=== PATIENT | female | born 1970 | race Caucasian/White ===

== ENCOUNTER 2017-12-19 15:44 | Emergency (ER) | payer OTHER ==
[2017-12-19 16:41] VITALS: BP 117/65
--- NOTE | 2017-12-19 16:48 | UC ---
Respiratory Complaint HPI - HPI Summary HPI Summary: Pt presents with 10 days of fatigue, sinus pain/pressure/congestion, and dry cough. She thinks the fatigue and sinus symptoms are improving. Has been taking nyquill/dayquill with mild relief of her symptoms. Today she is most concerned with her persisting cough. Denies fever, chills, SOB, chest pain, abdominal pain , n/v/d/c. She is still smoking. - History of Current Complaint Hx Obtained From: Patient Hx Last Menstrual Period: 04/18/16 Severity Initially: Moderate Severity Currently: Moderate Pain Intensity: 5 Pain Scale Used: 0-10 Numeric Character: Cough: Nonproductive <Randall Monae - Last Filed: 12/19/17 17:42> <Brandy Leon - Last Filed: 12/19/17 19:05> - History of Current Complaint Chief Complaint: UCGeneralIllness Stated Complaint: URI Time Seen by Provider: 12/19/17 16:48 - Allergies/Home Medications Allergies/Adverse Reactions: Allergies Allergy/AdvReac Type Severity Reaction Status Date / Time bee pollen Allergy Anaphylatic Verified 12/19/17 16:42 Shock Penicillins Allergy Anaphylatic Verified 12/19/17 16:42 Shock PMH/Surg Hx/FS Hx/Imm Hx Previously Healthy: Yes - Surgical History Surgical History: Yes Surgery Procedure, Year, and Place: Deviated septum. Tubal ligation - Family History Known Family History: Positive: Hypertension - Social History Occupation: Employed Full-time Lives: With Family Alcohol Use: Occasionally Alcohol Amount: 2-3 drinks every two weeks Substance Use Type: None Smoking Status (MU): Current Every Day Smoker Type: Cigarettes Amount Used/How Often: 1 PACK/WEEK Length of Time of Smoking/Using Tobacco: quit 11/05/14 Have You Smoked in the Last Year: Yes <Randall Monae - Last Filed: 12/19/17 17:42> Review of Systems Constitutional: Fatigue Skin: Negative Eyes: Negative ENT: Sinus Congestion Respiratory: Cough Cardiovascular: Negative Gastrointestinal: Negative Musculoskeletal: Negative Neurological: Negative Psychological: Negative All Other Systems Reviewed And Are Negative: Yes <Randall Monae - Last Filed: 12/19/17 17:42> Physical Exam Triage Information Reviewed: Yes Appearance: Well-Appearing, No Pain Distress, Well-Nourished Vital Signs: Initial Vital Signs Temp 98.9 F 12/19/17 16:36 Pulse 77 12/19/17 16:36 Resp 19 12/19/17 16:36 BP 117/65 12/19/17 16:36 Pulse Ox 100 12/19/17 16:36 Vital Signs Reviewed: Yes Eyes: Positive: Conjunctiva Clear. Negative: Conjunctiva Inflamed, Discharge ENT: Positive: Hearing grossly normal, Pharynx normal, Nasal congestion, TMs normal, Uvula midline. Negative: Pharyngeal erythema, Nasal drainage, TM bulging, TM dull, TM red, Tonsillar swelling, Tonsillar exudate, Sinus tenderness Neck: Positive: Supple, Nontender, No Lymphadenopathy Respiratory: Positive: Lungs clear, No respiratory distress, No accessory muscle use, Wheezing - Mild throughout Cardiovascular: Positive: RRR, No Murmur, Pulses Normal Neurological: Positive: Alert Psychological: Positive: Age Appropriate Behavior Skin: Negative: rashes <Randall Monae - Last Filed: 12/19/17 17:42> Vital Signs: Initial Vital Signs Temp 98.9 F 12/19/17 16:36 Pulse 77 12/19/17 16:36 Resp 19 12/19/17 16:36 BP 117/65 12/19/17 16:36 Pulse Ox 100 12/19/17 16:36 <Brandy Leon - Last Filed: 12/19/17 19:05> Diagnostic Evaluation - Laboratory O2 Sat by Pulse Oximetry: 100 <Randall Monae - Last Filed: 12/19/17 17:42> Respiratory Course/Dx - Course Course Of Treatment: CXR: Lung carreon demonstrate no pleural fluid, pneumonia. or pneumothorax. POC flu negative. Suspect bronchitis. Will try tessalon and albuterol inhaler. F/u prn - Differential Dx/Diagnosis Provider Diagnoses: Bronchitis <Randall Monae - Last Filed: 12/19/17 17:42> Discharge <Randall Moane - Last Filed: 12/19/17 17:42> <Brandy Leon - Last Filed: 12/19/17 19:05> - Discharge Plan Condition: Stable Disposition: HOME Prescriptions: Albuterol HFA INHALER* [Ventolin HFA Inhaler*] 1 - 2 puff INH Q6H PRN #1 mdi PRN Reason: Wheezing Benzonatate CAP* [Tessalon 100 MG CAP*] 100 mg PO TID PRN #21 cap PRN Reason: Cough Patient Education Materials: Acute Bronchitis (ED) Referrals: Peggy Hart MD [Primary Care Provider] - Additional Instructions: If you develop a fever, shortness of breath, chest pain, new or worsening symptoms - please call your PCP or go to the ED. Attestation Statement User Type: Provider - I was available for consult. This patient was seen by the advanced practice provider. The patient was not presented to, seen by, or examined by me.-Derian <Brandy Leon - Last Filed: 12/19/17 19:05>
--- NOTE | 2017-12-19 17:34 | RAD ---
Indication: Cough. 2 views the chest including dual energy PA views demonstrate no mediastinal shift. Heart is of normal size and configuration. Lung carreon demonstrate no pleural fluid, pneumonia or pneumothorax. When compared to previous exam of February 07, 2016 no significant change is noted. IMPRESSION: Active cardiopulmonary disease is identified.
== END 2017-12-19 17:52 | disposition home or self-care (01) ==
LOC: UCEAST 15:44
DX: J40 Bronchitis, not specified as acute or chronic (principal); Z88.0 Allergy status to penicillin; Z91.030 Bee allergy status; Z87.891 Personal history of nicotine dependence
CPT/HCPCS: 71046; 87502; 99212; G0463

== ENCOUNTER 2019-01-24 11:43 | Emergency (ER) | payer OTHER ==
[2019-01-24 11:53] VITALS: BP 117/62
--- NOTE | 2019-01-24 12:03 | ED ---
Upper Extremity Pain - HPI Summary HPI Summary: 48-year-old female presents with right shoulder injury last week. States he fell on her right shoulder while walking the dog. She states the pain radiates into her right side of her neck. No numbness or tingling. She states she is not able to lift her arm up above shoulder height or behind her back. denies any previous injury to the area. She is right-handed. She works as an administrative accountant. - History of Current Complaint Chief Complaint: UCUpperExtremity Stated Complaint: RT SHOULDER/NECK Time Seen by Provider: 01/24/19 11:56 Hx Last Menstrual Period: 04/18/16 - Allergies/Home Medications Allergies/Adverse Reactions: Allergies Allergy/AdvReac Type Severity Reaction Status Date / Time bee pollen Allergy Anaphylatic Verified 01/24/19 11:53 Shock Penicillins Allergy Anaphylatic Verified 01/24/19 11:53 Shock Home Medications: Home Medications NK [No Home Medications Reported] 01/24/19 [History Confirmed 01/24/19] PMH/Surg Hx/FS Hx/Imm Hx Endocrine/Hematology History: Denies: Hx Diabetes, Hx Thyroid Disease Cardiovascular History: Denies: Hx Hypertension Respiratory History: Denies: Hx Asthma, Hx Chronic Obstructive Pulmonary Disease (COPD) GI History: Denies: Hx Ulcer - Surgical History Surgery Procedure, Year, and Place: Deviated septum. Tubal ligation Infectious Disease History: No Infectious Disease History: Denies: Hx Clostridium Difficile, Hx Hepatitis, Hx Human Immunodeficiency Virus (HIV), Hx of Known/Suspected MRSA, Hx Shingles, Hx Tuberculosis, Hx Known/ Suspected VRE, Hx Known/Suspected VRSA, History Other Infectious Disease, Traveled Outside the [place] in Last 30 Days - Family History Known Family History: Positive: Hypertension - Social History Alcohol Use: Occasionally Alcohol Amount: 2-3 drinks every two weeks Substance Use Type: Reports: None Hx Tobacco Use: Yes Smoking Status (MU): Former Smoker Type: Cigarettes Amount Used/How Often: 1 PACK/WEEK Length of Time of Smoking/Using Tobacco: quit 11/05/14 Have You Smoked in the Last Year: Yes Review of Systems Negative: Fever Negative: Chest Pain Negative: Shortness Of Breath Positive: Myalgia - right shoulder pain All Other Systems Reviewed And Are Negative: Yes Physical Exam Triage Information Reviewed: Yes Vital Signs On Initial Exam: Initial Vitals Temp Pulse Resp BP Pulse Ox 97 F 87 20 117/62 100 01/24/19 11:50 01/24/19 11:50 01/24/19 11:50 01/24/19 11:50 01/24/19 11:50 Vital Signs Reviewed: Yes Appearance: Positive: Well-Appearing Skin: Positive: Warm, Dry Head/Face: Positive: Normal Head/Face Inspection Eyes: Positive: Normal, Conjunctiva Clear ENT: Positive: Pharynx normal Respiratory/Lung Sounds: Positive: Clear to Auscultation, Breath Sounds Present Cardiovascular: Positive: Normal, RRR Musculoskeletal: Positive: Limited @ - right shoulder, Other - tenderness right shoulder, good pulses, unable to lift arm above right shoulder, limited ROM behind right shoulder, tenderness side of neck, no midline tenderness. good ampoule filler and sealer strength Neurological: Positive: Normal Psychiatric: Positive: Normal Diagnostics - Vital Signs Vital Signs Temp Pulse Resp BP Pulse Ox 01/24/19 11:50 97 F 87 20 117/62 100 - Laboratory Lab Statement: Any lab studies that have been ordered have been reviewed, and results considered in the medical decision making process. - Radiology shoulder Radiology Interpretation Completed By: Radiologist Summary of Radiographic Findings: IMPRESSION: #. No radiographic evidence for RIGHT shoulder injury or adjacent rib fracture. Course/Dx - Course Course Of Treatment: 48-year-old female presents with right shoulder injury last week. States he fell on her right shoulder while walking the dog. She states the pain radiates into her right side of her neck. No numbness or tingling. She states she is not able to lift her arm up above shoulder height or behind her back. denies any previous injury to the area. She is right- handed. She works as an administrative accountant. On exam tenderness over shoulder right. Limited range of motion. Neurovascularly intact. xray shows no fracture. gave sling. told follow up with ortho. will place on muscle relaxer. patient understand and agrees with plan. - Diagnoses Differential Diagnosis/HQI/PQRI: Positive: Fracture (Closed), Strain, Sprain Provider Diagnoses: Right shoulder pain Discharge - Sign-Out/Discharge Documenting (check all that apply): Patient Departure All imaging exams completed and their final reports reviewed: Yes - Discharge Plan Condition: Good Disposition: HOME Patient Education Materials: Shoulder Pain (ED) Referrals: Peggy Hart MD [Primary Care Provider] - Elidia Young MD [Medical Doctor] - Additional Instructions: Take Tylenol and ibuprofen every 6 hours as needed for pain take flexeril three times a day for pain Ice/heat perform range of motion activities for shoulder as tolerated Follow up with ortho Return to ED if develop any new or worsening symptoms - Billing Disposition and Condition Condition: GOOD Disposition: Home
== END 2019-01-24 12:50 | disposition home or self-care (01) ==
LOC: UCEAST 11:43
DX: M25.511 Pain in right shoulder (principal); Z87.891 Personal history of nicotine dependence; Z91.030 Bee allergy status; Z88.0 Allergy status to penicillin; W51.XXXA Accidental striking against or bumped into by another person, initial encounter; Y93.01 Activity, walking, marching and hiking; Y92.9 Unspecified place or not applicable
CPT/HCPCS: 99213; G0463